=== PATIENT | female | born 1980 | race Caucasian/White ===

== ENCOUNTER 2018-12-14 13:06 | Emergency (ER) | payer SELFPAY ==
[2018-12-14] MEDS ORDERED: Ketorolac Tromethamine 30 MG/ML VIAL ONE (13:23)
[2018-12-14] MEDS ORDERED: Morphine 4 MG/ML VIAL ONE (13:23)
--- NOTE | 2018-12-14 13:29 | RAD ---
2 VIEWS RIGHT HUMERUS: Date: 12/14/18 [ COMPARISON: None. HISTORY: Horse accident with right arm pain. FINDINGS: Two views of the right humerus show a fracture of the neck of the right humerus. No dislocation of th e humeral head is seen. No other fractures are seen. IMPRESSION: Right humeral neck fracture. POS: [facility]
--- NOTE | 2018-12-14 13:30 | RAD ---
2 VIEWS RIGHT SHOULDER: Date: 12/14/18 HISTORY: Horse accident with right arm/shoulder pain. Patient fell of horse while riding it, landing on sand. FINDINGS: Two views of the right shoulder show a fracture of the right humeral neck. No dislocation of the lizabeth ral head is seen. No other fractures are seen. Rods are seen within the spine. IMPRESSION: Right humeral neck fracture. POS: [facility]
== END 2018-12-14 14:29 | disposition home or self-care (01) ==
LOC: ERS 13:06
DX: S42.211A Unspecified displaced fracture of surgical neck of right humerus, initial encounter for closed fracture (principal); F41.9 Anxiety disorder, unspecified; V80.010A Animal-rider injured by fall from or being thrown from horse in noncollision accident, initial encounter
CPT/HCPCS: 94760; 96374; 96375; J1885; J2270

== ENCOUNTER 2018-12-18 10:26 | Day surgery (SDC) | payer OTHER ==
[2018-12-17 15:29] VITALS: BMI 19.3
[2018-12-18] MEDS ORDERED: Fentanyl 100 MCG/2 ML VIAL ONE (11:07)
[2018-12-18] MEDS ORDERED: Midazolam HCl 2 mg/2 ml Vial ONE (11:07)
[2018-12-18] MEDS ORDERED: HYDROcodone/Acetaminophen 10/325 mg Tablet PO PRN ×2 (11:37)
[2018-12-18] MEDS ORDERED: Ropivacaine 0.2% 550 ML 550 ML NERVE BLCK SCH (11:37)
[2018-12-18] MEDS ORDERED: Zolpidem Tartrate 5 MG TAB PO PRN (11:37)
[2018-12-18] MEDS ORDERED: traMADol HCl 50 MG TAB PO PRN ×2 (11:37)
[2018-12-18] MEDS ORDERED: Ketorolac Tromethamine 30 MG/ML VIAL IVP PRN (11:37)
[2018-12-18] MEDS ORDERED: Fentanyl 100 MCG/2 ML VIAL IV PRN (11:37)
[2018-12-18] MEDS ORDERED: Promethazine HCl 25 MG/ML VIAL IM PRN (11:37)
[2018-12-18] MEDS ORDERED: Ondansetron PF 4 MG/2 ML Vial IVP PRN (11:37)
[2018-12-18] MEDS ORDERED: Ropivacaine 0.5% HCl/PF (150 MG/30 ML VIAL) ONE (12:04)
[2018-12-18] MEDS ORDERED: Dexamethasone 20 MG/5 ML VIAL ONE (13:02)
[2018-12-18] MEDS ORDERED: Lidocaine 1% PF 5 ML VIAL ONE (13:02)
[2018-12-18] MEDS ORDERED: Ondansetron PF 4 MG/2 ML Vial ONE (13:02)
[2018-12-18] MEDS ORDERED: Glycopyrrolate 0.2 MG/ML 5 ML SYRINGE ONE (13:02)
[2018-12-18] MEDS ORDERED: PHENYLEPHRINE-NS 100 MCG/ML 10 ML SYRINGE ONE (13:02)
[2018-12-18] MEDS ORDERED: Rocuronium Bromide 10 MG/ML (10ML VIAL) ONE (13:02)
[2018-12-18] MEDS ORDERED: PROPOFOL 200 MG/20 ML VIAL ONE (13:02)
[2018-12-18] MEDS ORDERED: Meperidine HCl/PF 25 MG/ML VIAL ONE (13:14)
--- NOTE | 2018-12-18 16:15 | RAD ---
RADIOGRAPH RIGHT HUMERUS 2 VIEWS: Date: 12/18/18 Time: 1251 hours HISTORY: 38-year-old female with acute, traumatic, displaced fracture of right proximal humeral metastasis. COMPARISON: 12/14/18. FINDINGS: A total of three, small field of view, fluoroscopic spot images obtained with C-arm in the OR, with i ntrinsically low resolution, demonstrates interval reduction of the humeral surgical neck fracture wi th nearly anatomical alignment now, fixated by an intramedullary nail that enters through the humeral head, and reaches the mid diaphysis. There are two stabilization screws. IMPRESSION: Reduction and intramedullary nail fixation of the acute, traumatic, displaced right humeral proximal metaphyseal fracture. POS: [facility]
--- NOTE | 2018-12-18 19:12 | OP ---
DATE OF PROCEDURE: 12/18/2018 PROCEDURE PERFORMED: Right proximal humerus fracture intramedullary nail fixation. PREOPERATIVE DIAGNOSIS: Right two-part proximal humerus fracture. POSTOPERATIVE DIAGNOSIS: Right two-part proximal humerus fracture. COMPLICATIONS: None. ESTIMATED BLOOD LOSS: 50 mL. ANESTHESIA: General plus regional. IMPLANTS: Synthes short humeral nail, size 11 mm with helical blade and crosslock screw. PROGRAM SPECIALIST: Jas Chandra PA-C. INDICATIONS: Ms. Harrison is a 38-year-old female who has fallen off a horse. She fractured her proximal humerus. She was indicated for intramedullary nail fixation to restore anatomic alignment and promote healing. Risks have been reviewed in detail. She elected to proceed with the operation. DESCRIPTION OF PROCEDURE: Ms. Harrison was identified in the preoperative holding area. Her correct extremity was marked. She was carried to the operating room. She was positioned supine. General anesthesia was induced. A multidisciplinary time-out was performed. The right upper extremity was prepped and draped in sterile fashion. We began the procedure with evaluation of the fracture with x-ray. We pulled traction and reduced the fracture. We made a small incision proximal in the shoulder and dissected down to the subcutaneous tissues. We made a split in the deltoid muscle. We then evaluated the rotator cuff and made a longitudinal split in the rotator cuff at our entry point. This allowed intramedullary access with a guidewire. We used intraoperative x-ray to guide this. We over-reamed the guidewire. We then inserted an 11 mm nail into the intramedullary canal. This allowed us to reduce the fracture. We placed a helical blade in the proximal aspect of the humerus. This was followed by placement of a distal crosslock screw using the appropriate guide. At this point, we thoroughly irrigated. We then closed with #2 Vicryl suture for the rotator cuff, followed by #1 suture and layered closure for the skin. A sterile dressing was applied. The patient was taken to the recovery room in good condition without complication. Job ID: [id number]
== END 2018-12-18 15:25 | disposition home or self-care (01) ==
LOC: SDC 10:26
PROVIDERS: ATTEND Orthopaedic Surgery
PROC: 0PSC06Z Reposition Right Humeral Head with Intramedullary Internal Fixation Device, Open Approach (ICD-10-PCS; principal; 2018-12-18)
DX: S49.001A Unspecified physeal fracture of upper end of humerus, right arm, initial encounter for closed fracture (principal); V80.010A Animal-rider injured by fall from or being thrown from horse in noncollision accident, initial encounter
CPT/HCPCS: 76000; A4306; C1713; C1769; J2175; J2250; J2795; J3010